=== PATIENT | female | born 1970 | race Caucasian/White ===

== ENCOUNTER 2019-03-23 11:08 | Emergency (ER) | payer OTHER ==
[~2019-03-23] VITALS: Ht 165.1 cm; Wt 99.9 kg
[2019-03-23 11:14] VITALS: BP 130/91
--- NOTE | 2019-03-23 11:17 | NUR ---
PATIENT AMBULATED TO BED 3,.
--- NOTE | 2019-03-23 11:18 | NUR ---
PATIENT PRESENTS TO ED WITH C/O CHEST PAIN X 2 WEEKS, REFERRED FROM PCP TODAY . PT STATES STERNAL PRESSURE PAIN, COMES AND GOES, SOB, COUGHING NOTED, CLEAR LUNG SOUNDS RAJI. DENIES N/V/D; SKIN IS PINK/WARM/DRY; PATIENT STATES PAIN OF 3/10 AT THIS TIME; VSS; PATIENT POSITIONED FOR COMFORT; HOB ELEVATED; BEDRAILS UP X2; BED DOWN. ER MD MADE AWARE OF PT STATUS.
--- NOTE | 2019-03-23 11:22 | NUR ---
Patient being evaluated by physician at bedside.
[2019-03-23] MEDS ORDERED: ASPIRIN 81 MG TAB.CHEW PO ONE (11:30)
[2019-03-23] MEDS ORDERED: KETOROLAC 60 MG/2 ML VIAL IM ONE (11:30)
--- NOTE | 2019-03-23 11:35 | NUR ---
MEDICATION GIVEN, VSS, PT TOELRATD WELL.
--- NOTE | 2019-03-23 11:41 | NUR ---
X-RAY AT BEDSIDE
[2019-03-23 11:54] LABS: BASOPHILS % (AUTO) 0.6 % (0.0-2.0); EOSINOPHILS # (AUTO) 0.2 K/uL (0-0.4); EOSINOPHILS % (AUTO) 2.9 % (0.0-4.0); HEMATOCRIT 39.9 % (36-48); HEMOGLOBIN 13.3 g/dL (12.0-16.0); LYMPHOCYTES # (AUTO) 1.5 K/uL (2.5-16.5); MEAN CORPUSCULAR HEMOGLOBIN 28 pg (27-31); MEAN CORPUSCULAR HGB CONC 34 g/dL (33-37); MEAN CORPUSCULAR VOLUME 82.7 fL (80-94); MONOCYTES # (AUTO) 0.4 K/uL (0.8-1.0); MONOCYTES % (AUTO) 6.2 % (1.7-9.3); NEUTROPHILS % (AUTO) 65.3 % (42.2-75.2); PLATELET COUNT (AUTO) 162 K/uL (140-450); RED BLOOD CELL COUNT(AUTO) 4.82 MIL/uL (4.20-5.40); RED CELL DISTRIBUTION WIDTH 14.1 % (11.6-13.7); WHITE BLOOD COUNT (AUTO) 6.2 K/uL (4.8-10.8)
[2019-03-23 12:02] LABS: ANION GAP 11.7 (8-16); CARBON DIOXIDE 26.3 mmol/L (21-32); CREATININE 0.7 mg/dL (0.6-1.3)
[2019-03-23 12:15] LABS: ALBUMIN 3.6 g/dL (3.4-5.0); TOTAL BILIRUBIN 0.3 mg/dL (0.0-1.0)
[2019-03-23 12:43] VITALS: BP 130/100
--- NOTE | 2019-03-23 12:43 | NUR ---
Patient discharged with v/s stable, DENIES CHEST PAIN. Written and verbal after care instructions given and explained. Rx of NAPROSYN given. Patient educated on indication of medication including possible reaction and side effects. Opportunity to ask questions provided and answered. ID band removed. Patient advised to follow up with PMD.
== END 2019-03-23 12:43 | disposition home or self-care (01) ==
LOC: MED 11:08
DX: R07.89 Other chest pain (principal); R03.0 Elevated blood-pressure reading, without diagnosis of hypertension; R06.00 Dyspnea, unspecified; R00.2 Palpitations; R10.13 Epigastric pain
CPT/HCPCS: 36415; 71045; 80053; 81025; 83690; 84484; 85025; 93005; 96372; 99284; J1885; Q0092

== ENCOUNTER 2022-02-24 12:05 | Emergency (ER) | payer SELFPAY ==
[~2022-02-24] VITALS: Ht 162.6 cm; Wt 86.2 kg
[2022-02-24 12:50] VITALS: BP 107/74
--- NOTE | 2022-02-24 12:54 | NUR ---
CALLUM. HANDED ON URINE CUP.
--- NOTE | 2022-02-24 14:30 | NUR ---
PT AMBULATED TO BED 2
--- NOTE | 2022-02-24 14:45 | NUR ---
51 Y/O FEMALE C/O MID ABDOMINAL PAIN 06/03 DESCRIBES CRAMPING GENERALIZEDX 3 DAYS. DENIES FEVER/CHILLS. DENIES N/V/D. PT STATES SHE RECENTLY SAW PCP HAD BLOOD WORK DONE WITH PENDING RESULTS. SENT FOR FURTHER EVALUATION. PMH: RA LOREDO
[2022-02-24] MEDS ORDERED: NACL 0.9% 1,000 ML IV ONE (15:10)
--- NOTE | 2022-02-24 15:25 | NUR ---
XRAY AT BEDSIDE
[2022-02-24 16:10] LABS: BASOPHILS % (AUTO) 0.3 % (0.0-2.0); EOSINOPHILS # (AUTO) 0.1 K/uL (0-0.4); HEMATOCRIT 40.8 % (36-48); HEMOGLOBIN 13.8 g/dL (12.0-16.0); LYMPHOCYTES # (AUTO) 1.4 K/uL (2.5-16.5); LYMPHOCYTES % (AUTO) 15.4 % (20.5-51.1); MEAN CORPUSCULAR HEMOGLOBIN 28 pg (27-31); MEAN CORPUSCULAR HGB CONC 34 g/dL (33-37); MEAN CORPUSCULAR VOLUME 82.2 fL (80-94); MONOCYTES # (AUTO) 0.6 K/uL (0.8-1.0); MONOCYTES % (AUTO) 6.8 % (1.7-9.3); NEUTROPHILS % (AUTO) 76.5 % (42.2-75.2); PLATELET COUNT (AUTO) 170 K/uL (140-450); RED BLOOD CELL COUNT(AUTO) 4.97 MIL/uL (4.20-5.40); RED CELL DISTRIBUTION WIDTH 13.8 % (11.6-13.7); WHITE BLOOD COUNT (AUTO) 9.2 K/uL (4.8-10.8)
[2022-02-24 16:42] LABS: ALBUMIN 3.6 g/dL (3.4-5.0); ANION GAP 15.5 (8-16); CARBON DIOXIDE 24.9 mmol/L (21-32); CREATININE 0.8 mg/dL (0.6-1.3); POTASSIUM 3.4 mmol/L (3.5-5.1); TOTAL BILIRUBIN 0.4 mg/dL (0.0-1.0)
--- NOTE | 2022-02-24 16:49 | NUR ---
PT RESTING IN BED, HOB ELEVATED FOR COMFORT, WILL CONTINUE TO MONITOR.
[2022-02-24 17:16] VITALS: BP 116/63
[2022-02-24] MEDS ORDERED: KETOROLAC 15 MG/ML VIAL IVP ONE (18:05)
[2022-02-24] MEDS ORDERED: IBUP-2213 PO (18:54)
[2022-02-24] MEDS ORDERED: OMEP40EC23 PO (18:54)
[2022-02-24] MEDS ORDERED: ONDA-188 SL (18:54)
--- NOTE | 2022-02-24 19:21 | NUR ---
IV removed, catheter intact and site benign. Applied folded 4x4 gauze and tape to stop bleeding.
--- NOTE | 2022-02-24 19:21 | NUR ---
Patient discharged with v/s stable. Written and verbal after care instructions FOR ABDOMINAL PAIN AND DEHYDRATION given and explained. Patient alert, oriented and verbalized understanding of instructions. Ambulatory with steady gait. All questions addressed prior to discharge. ID band removed. Patient advised to follow up with PMD. Rx of IBUPROFEN, OMEPRAZOLE AND ONDANSTRON given. Opportunity to ask questions provided and answered.
--- NOTE | 2022-02-24 19:24 | NUR ---
The patient's care was reviewed and supervised by Sudha Velasquez RN.
== END 2022-02-24 19:10 | disposition home or self-care (01) ==
LOC: MED 12:05
DX: R11.2 Nausea with vomiting, unspecified (principal); R19.7 Diarrhea, unspecified; R51.9 Headache, unspecified; E86.0 Dehydration
CPT/HCPCS: 36415; 73130; 80053; 81002; 81025; 83690; 85025; 96361; 96374; 99284; J1885; J7030; Q0092